=== PATIENT | female | born 1985 | race Caucasian/White ===

== ENCOUNTER 2023-08-09 17:54 | Emergency (ER) | payer OTHER ==
[~2023-08-09] VITALS: Ht 157.5 cm; Wt 85.7 kg
[2023-08-09 18:02] VITALS: BP 116/72; PULSE 69; RESP 18; TEMP 98; O2SAT 100
[2023-08-09] MEDS ORDERED: IBUP-1842 PO (19:47)
[2023-08-09] MEDS ORDERED: ACET-10509 PO (19:47)
== END 2023-08-09 19:58 | disposition home or self-care (01) ==
LOC: MED 17:54
DX: R51.9 Headache, unspecified (principal); Z79.899 Other long term (current) drug therapy
CPT/HCPCS: 81025; 99282